=== PATIENT | male | born 1975 | race Two or more races ===

== ENCOUNTER 2017-06-11 22:21 | Emergency (ER) | payer MEDICARE, MEDICAID ==
[~2017-06-11] VITALS: Ht 162.6 cm; Wt 59.0 kg
[2017-06-11] MEDS ORDERED: ATENOLOL25 MG ORAL (22:42)
[2017-06-11] MEDS ORDERED: BISACODYL10 M1 RC (22:42)
[2017-06-11] MEDS ORDERED: BENZTROPINE MESY1 MG PO (22:42)
[2017-06-11] MEDS ORDERED: ASCORBIC ACID500 M4 ORAL (22:42)
[2017-06-11 23:13] VITALS: BP 125/83
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
[2017-07-17] MEDS ORDERED: DOXYCYCLINE HY100 M2 PO (13:02)
== END 2017-06-11 23:43 ==
LOC: EDBD 22:21 → EMR 22:41
DX: D17.1 Benign lipomatous neoplasm of skin and subcutaneous tissue of trunk (principal); I10 Essential (primary) hypertension; J44.9 Chronic obstructive pulmonary disease, unspecified; K21.9 Gastro-esophageal reflux disease without esophagitis; F20.9 Schizophrenia, unspecified; Z88.0 Allergy status to penicillin
CPT/HCPCS: 99283

== ENCOUNTER 2017-07-09 16:26 | Inpatient (IN) | payer MEDICARE, OTHER ==
[~2017-07-09] VITALS: Ht 162.6 cm; Wt 52.2 kg
[~2017-07-09 16:26] MED LIST: ASCORBIC ACID500 M4 ORAL; ATENOLOL25 MG ORAL; BENZTROPINE MESY1 MG PO; BISACODYL10 M1 RC
[2017-07-09 16:30] VITALS: BP 113/68
[2017-07-09] MEDS ORDERED: MULTI VITAMIN1 EACH ORAL (16:39)
[2017-07-09] MEDS ORDERED: DOCUSATE SODIU250 MG ORAL (16:39)
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
[2017-07-09] MEDS ORDERED: Vancomycin 1 GM in NS 275 ML IV ONE (17:15)
[2017-07-09 17:18] LABS: BASOPHILS % (AUTO) 0.8 % (0.0-2.0); EOSINOPHILS % (AUTO) 0.3 % (0.0-3.0); HEMOGLOBIN 13.5 G/DL (14.2-18.0); LYMPHOCYTES % (AUTO) 21.2 % (20.0-45.0); MEAN CORPUSCULAR VOLUME 85 FL (80-99); MONOCYTES % (AUTO) 6.8 % (1.0-10.0); NEUTROPHILS % (AUTO) 70.8 % (45.0-75.0); PLATELET COUNT 375 K/UL (150-450); RED CELL DISTRIBUTION WIDTH 14.1 % (11.6-14.8); WHITE BLOOD COUNT 12.1 K/UL (4.8-10.8)
[2017-07-09] MEDS ORDERED: Vancomycin 1gm inj IVPB ONE (17:30)
[2017-07-09 17:32] LABS: ANION GAP 7 mmol/L (5-15); BLOOD UREA NITROGEN 15 mg/dL (7-18); CALCIUM 9.7 MG/DL (8.5-10.1); CARBON DIOXIDE 27 MMOL/L (21-32); CHLORIDE 102 MMOL/L (98-107); CREATININE 0.6 MG/DL (0.55-1.30); POTASSIUM 3.6 MMOL/L (3.5-5.1); SODIUM 136 MMOL/L (136-145)
[2017-07-09] MEDS ORDERED: NS 275 ML ONE (17:32)
[2017-07-09 17:37] LABS: ALANINE AMINOTRANSFERASE 14 U/L (12-78); ALBUMIN 3.3 G/DL (3.4-5.0); ALBUMIN/GLOBULIN RATIO 0.6 (1.0-2.7); ALKALINE PHOSPHATASE 117 U/L (46-116); ASPARTATE AMINO TRANSFERASE 20 U/L (15-37); BILIRUBIN,TOTAL 0.3 MG/DL (0.2-1.0)
[2017-07-09 18:11] LABS: APPEARANCE,URINE CLEAR; BILIRUBIN, URINE NEGATIVE (NEGATIVE); GLUCOSE, URINE (UA) NEGATIVE (NEGATIVE); KETONES,URINE NEGATIVE (NEGATIVE); LEUKOCYTE ESTERASE ,URINE NEGATIVE (NEGATIVE); NITRITE,URINE NEGATIVE (NEGATIVE); PH,URINE 6 (4.5-8.0); PROTEIN,URINE NEGATIVE (NEGATIVE); UROBILINOGEN,URINE NORMAL MG/DL (0.0-1.0)
[2017-07-09 18:13] LABS: COLOR,URINE YELLOW
[2017-07-09 18:30] VITALS: BP 109/81
[2017-07-09] MEDS ORDERED: Miralax 17gm pkt ORAL PRN (19:00)
[2017-07-09] MEDS ORDERED: FERROUS SULFAT325 MG ORAL (19:00)
[2017-07-09] MEDS ORDERED: COLACE100 MG ORAL (19:04)
[2017-07-09] MEDS ORDERED: CYCLOBENZAPRINE10 MG ORAL (19:04)
[2017-07-09] MEDS ORDERED: IBUPROFEN400 MG ORAL (19:08)
[2017-07-09] MEDS ORDERED: TRAMADOL HCL50 MG ORAL (19:12)
[2017-07-09 20:39] VITALS: BP 111/84
[2017-07-09 21:15] VITALS: BP 101/68
[2017-07-09] MEDS: Morphine Sulfate 4mg/ml Inj IVP PRN (23:25)
[2017-07-10] VITALS: BP 103/78
[2017-07-10] MEDS: Benztropine 1mg tab ORAL SCH ×2 (08:46→17:34)
[2017-07-10] MEDS: Atenolol 25mg tab ORAL SCH (08:46)
[2017-07-10 10:31] LABS: BASOPHILS % (AUTO) 1.3 % (0.0-2.0); EOSINOPHILS % (AUTO) 1.8 % (0.0-3.0); HEMATOCRIT 39.2 % (42.0-52.0); HEMOGLOBIN 12.9 G/DL (14.2-18.0); LYMPHOCYTES % (AUTO) 30.1 % (20.0-45.0); MEAN CORPUSCULAR VOLUME 86 FL (80-99); MONOCYTES % (AUTO) 10.5 % (1.0-10.0); NEUTROPHILS % (AUTO) 56.4 % (45.0-75.0); PLATELET COUNT 374 K/UL (150-450); RED BLOOD COUNT 4.57 M/UL (4.70-6.10)
[2017-07-10 10:57] LABS: ALANINE AMINOTRANSFERASE 17 U/L (12-78); ALBUMIN 2.9 G/DL (3.4-5.0); ALBUMIN/GLOBULIN RATIO 0.5 (1.0-2.7); ALKALINE PHOSPHATASE 108 U/L (46-116); ANION GAP 7 mmol/L (5-15); ASPARTATE AMINO TRANSFERASE 17 U/L (15-37); BILIRUBIN,TOTAL 0.2 MG/DL (0.2-1.0); BLOOD UREA NITROGEN 13 mg/dL (7-18); CALCIUM 9.2 MG/DL (8.5-10.1); CARBON DIOXIDE 25 MMOL/L (21-32); CHLORIDE 103 MMOL/L (98-107); CHOLESTEROL 117 MG/DL (< 200); CREATININE 0.5 MG/DL (0.55-1.30); HDL CHOLESTEROL 41 MG/DL (40-60); SODIUM 135 MMOL/L (136-145); TRIGLYCERIDES 60 MG/DL (30-150)
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
--- NOTE | 2017-07-10 11:23 | Diagnostic Imaging Report ---
Indication: Dyspnea Comparison: None A single view chest radiograph was obtained. Findings: Cardiomediastinal appearance is within normal limits for age. Pulmonary vascularity is appropriate. The diaphragmatic contour is smooth and costophrenic angles are sharp. No pleural effusions are identified. The bones are osteopenic. There are old rib fractures on the right.. Lumbar fixation hardware noted. Impression: No acute findings
[2017-07-10] MEDS: Morphine Sulfate 4mg/ml Inj IVP PRN ×3 (11:56→21:25)
[2017-07-10 12:00] VITALS: BP 126/79
--- NOTE | 2017-07-10 12:48 | Cardiology Report ---
APPROVED REPORT EKG Measurement Heart [id number] Normal sinus rhythm Left axis deviation Abnormal ECG
--- NOTE | 2017-07-10 13:22 | Wound Care Consultation ---
Wound Assessment Wound Assessment #1: Wound Number: 1 Wound Present on Admission: Yes New Wound: No Status Change of Wound: No Wound Location Body Site Modif: right Wound Location Body Site: trochanter Wound Type: scar [place] Test: Does not [place] Wound Thickness: Full Thickness Wound Length: 6.0 Wound Width: 6.0 Percent of Wound [place]/Red: 100 Wound Drainage Amount: None Wound Drainage Odor: None/Absent Tissue Surrounding Wound: Intact Wound General Appearance: Open to air, Clean/Dry Wound Assessment #2: Wound Number: 2 Wound Present on Admission: Yes New Wound: No Status Change of Wound: No Wound Location Body Site Modif: right Wound Location Body Site: other - hip Wound Type: scar [place] Test: Does not [place] Wound Thickness: Full Thickness Wound Length: 2.0 Wound Width: 1.5 Percent of Wound [place]/Red: 100 Wound Drainage Amount: None Wound Drainage Odor: None/Absent Tissue Surrounding Wound: Intact Wound General Appearance: Reddened Wound Assessment #3: Wound Number: 3 Wound Present on Admission: Yes New Wound: No Status Change of Wound: No Wound Location Body Site: other - sacrococcygeal Wound Type: scar [place] Test: Does not [place] Wound Thickness: Full Thickness Wound Length: 6.5 Wound Width: 6.0 Percent of Wound [place]/Red: 100 Wound Drainage Amount: None Wound Drainage Odor: None/Absent Tissue Surrounding Wound: Intact Wound General Appearance: Open to air, Clean/Dry Wound Assessment #4: Wound Number: 4 Wound Present on Admission: Yes New Wound: No Status Change of Wound: No Wound Location Body Site Modif: left Wound Location Body Site: trochanter Wound Type: pressure ulcer [place] Test: Does not [place] Pressure Ulcer Stage: I Wound Length: 2.0 Wound Width: 2.0 Percent of Wound Ona/Red: 100 Wound Drainage Amount: None Wound Drainage Odor: None/Absent Tissue Surrounding Wound: Erythemic Wound General Appearance: Reddened Wound Assessment #5: Wound Number: 5 Wound Present on Admission: Yes New Wound: No Status Change of Wound: No Wound Location Body Site Modif: left, lateral Wound Location Body Site: malleolus/ankle Wound Type: scar - with red pigment [place] Test: Does not [place] Wound Length: 2.0 Wound Width: 1.5 Percent of Wound [place]a/Red: 100 Wound Drainage Amount: None Wound Drainage Odor: None/Absent Tissue Surrounding Wound: Intact Wound General Appearance: Open to air, Clean/Dry Wound Assessment #6: Wound Number: 6 Wound Present on Admission: Yes New Wound: No Status Change of Wound: No Wound Location Body Site Modif: left Wound Location Body Site: ischial tuberosity Wound Type: scar [place] Test: Does not [place] Wound Thickness: Full Thickness Wound Length: 2.0 Wound Width: 2.0 Percent of Wound [place]a/Red: 100 Wound Drainage Amount: None Wound Drainage Odor: None/Absent Tissue Surrounding Wound: Intact Wound General Appearance: Open to air, Clean/Dry Wound Comment #1 Posterior back abscess with open wound bed - follow up with MD for further treatment orders. #2 Right trochanter full thickness scar tissue with red pigment. #3 Right hip scar tissue noted resolving, intact,dry. #4 Sacrococcygeal full thickness scar tissue. #5 Left trochanter stage 1 pressure ulcer. #6 Left lateral malleolus full thickness scar tissue with red pigment. #7 Left ischial tuberosity full thickness scar tissue. Recommendation. - follow MD orders for abscess site. - Local wound care per protocol stage 1 to left trochanter - Assess scar tissue sites notify MD for any change of condition to skin and follow up accordingly - Keep clean and dry. - Optimize nutrition. - Turn and reposition. patient able to self reposition ,encourage and remind the importance of repositioning. - Assess and notify MD for any further change of condition to skin noted. HENRRY CLEMONS Jul 10, 2017 13:22
--- NOTE | 2017-07-10 14:33 | Diagnostic Imaging Report ---
Indication: Abdominal pain Technique: Continuous helical transaxial imaging of the abdomen and pelvis was obtained from the lung bases to the pubic symphysis. No intravenous contrast was administered. Coronal 2-D reformats were also obtained. Automatic Exposure Control was utilized. Total Dose length Product (DLP): 507.[address] Dose Index Volume (CTDIvol): 9.74 mGy Comparison: none Findings: The lung bases are clear. There may be a tiny gallstone present in the neck of the gallbladder. Evaluation of solid organs is limited on this study done without contrast material. There is a moderate degree of fecal retention and impaction of feces in the rectum is noted. The rectum is moderately distended. There is thickening of the urinary bladder wall consistent with cystitis. The appendix is seen and appears normal. No evidence of bowel obstruction, free fluid or free air. There is a isointense rounded mass projecting off the lateral part of the right kidney measuring 1.3 cm, nonspecific in nature. There is decubitus ulceration posterior to the right hip. Correlate clinically. Posterior fusion hardware demonstrated with pedicle screws and fusion rods at T11 and L1. There is a compression fracture of T12. IMPRESSION: Suspected tiny gallstone. No CT evidence of cholecystitis. Please correlate clinically. Moderate retention of fecal material and fecal impaction within the distended rectum. Thickening of the urinary bladder wall consistent with cystitis. Normal appendix 1.3 cm mass versus cyst right kidney. Right decubitus ulceration. Spine surgery as discussed above. The CT scanner at [facility] is accredited by the [employer] and the scans are performed using dose optimization techniques as appropriate to a performed exam including Automatic Exposure control.
--- NOTE | 2017-07-10 14:34 | Consultation ---
History of Present Illness General Date patient seen: Jul 10, 2017 Chief Complaint: Skin Rash/Abscess Reason for Consultation: back wound Present Illness HPI 41M poor historian with multiple medical comorbidities presented with wound on back that is draining. thought to potentially be infected lipoma. surgery called to evaluate. patient states he has had it for a while but not sure how long. has been draining for some time and states he has someone helping care for it but unsure who. no n/v/f/c. pain asking for morphine. Allergies: Coded Allergies: PENICILLINS (Verified Allergy, Unknown, 06/11/17) Medication History Scheduled Ascorbic Acid* (Ascorbic Acid*), 500 MG ORAL DAILY, (Reported) Atenolol* (Tenormin*), 25 MG ORAL DAILY, (Reported) Benztropine Mesylate* (Benztropine Mesylate*), 1 MG PO BID, (Reported) Cyclobenzaprine Hcl* (Flexeril*), 10 MG ORAL THREE TIMES A DAY, (Reported) Docusate Sodium* (Docusate Sodium*), 250 MG ORAL DAILY, (Reported) Ferrous Sulfate* (Ferrous Sulfate*), 325 MG ORAL DAILY, (Reported) Ibuprofen* (Motrin*), 400 MG ORAL Q6H, (Reported) Multivitamin (Multi Vitamin Daily), 1 TAB ORAL DAILY, (Reported) Scheduled PRN Docusate Sodium* (Colace*), 100 MG ORAL BID PRN for cons, (Reported) Tramadol Hcl* (Ultram*), 50 MG ORAL Q12HR PRN for For Pain, (Reported) Discontinued Medications Bisacodyl (Bisacodyl), 10 MG RC DAILY, (Reported) Discontinued Reason: Pt stopped taking med Patient History History Provided By: Patient, Medical Record Healthcare decision maker Resuscitation status No Chest Compressions Advanced Directive on File No Past Medical/Surgical History Past Medical/Surgical History: (1) Abscess Review of Systems All Other Systems: negative except mentioned in HPI Physical Exam General Appearance: no apparent distress Lines, tubes and drains: peripheral HEENT: normocephalic Neck: normal inspection Respiratory/Chest: normal breath sounds, no respiratory distress, no accessory muscle use Cardiovascular/Chest: normal rate Abdomen: normal bowel sounds, non tender, soft, no organomegaly, no mass Extremities: normal inspection Skin Exam: normal pigmentation, warm/dry Neurologic: alert, oriented x 3 Physical Exam Narrative left mid back with raised hard non mobile mass that has area of opening with drainage of serous fluid. no surrounding edema. very hard. patient states it is hardware from prior surgery. prior surgical scar noted. Last 24 Hour Vital Signs Date Time Temp Pulse Resp B/P (MAP) Pulse Ox O2 Delivery O2 Flow Rate FiO2 07/10/17 12:00 97.3 80 20 126/79 97 07/10/17 00:00 97 Room Air 07/10/17 00:00 97.7 107 20 103/78 97 Nasal Cannula 07/09/17 21:39 98.8 82 20 111/84 97 Room Air 07/09/17 21:15 97.9 99 18 101/68 99 Room Air 07/09/17 21:15 99 Room Air 07/09/17 20:39 98.8 82 20 111/84 97 Room Air 98.8 07/09/17 18:30 97.4 60 20 109/81 98 Room Air 97.4 07/09/17 16:30 98.6 101 20 113/68 96 Room Air 98.6 07/09/17 16:20 98.6 99 18 118/79 98 Room Air 98.6 Intake and Output 07/09/17 07/10/17 19:00 07:00 Intake Total 183.3 ml 91.7 ml Output Total 200 ml Balance -16.7 ml 91.7 ml IV Total 183.3 ml 91.7 ml Output Urine Total 200 ml # Voids 1 Laboratory Tests Test 07/09/17 16:45 07/09/17 17:28 07/10/17 10:15 White Blood Count 12.1 K/UL (4.8-10.8) H 7.0 K/UL (4.8-10.8) Red Blood Count 4.80 M/UL (4.70-6.10) 4.57 M/UL (4.70-6.10) L Hemoglobin 13.5 G/DL (14.2-18.0) L 12.9 G/DL (14.2-18.0) L Hematocrit 41.0 % (42.0-52.0) L 39.2 % (42.0-52.0) L Mean Corpuscular Volume 85 FL (80-99) 86 FL (80-99) Mean Corpuscular Hemoglobin 28.1 PG (27.0-31.0) 28.3 PG (27.0-31.0) Mean Corpuscular Hemoglobin Concent 32.9 G/DL (32.0-36.0) 33.0 G/DL (32.0-36.0) Red Cell Distribution Width 14.1 % (11.6-14.8) 14.0 % (11.6-14.8) Platelet Count 375 K/UL (150-450) 374 K/UL (150-450) Mean Platelet Volume 6.0 FL (6.5-10.1) L 6.1 FL (6.5-10.1) L Neutrophils (%) (Auto) 70.8 % (45.0-75.0) 56.4 % (45.0-75.0) Lymphocytes (%) (Auto) 21.2 % (20.0-45.0) 30.1 % (20.0-45.0) Monocytes (%) (Auto) 6.8 % (1.0-10.0) 10.5 % (1.0-10.0) H Eosinophils (%) (Auto) 0.3 % (0.0-3.0) 1.8 % (0.0-3.0) Basophils (%) (Auto) 0.8 % (0.0-2.0) 1.3 % (0.0-2.0) Sodium Level 136 MMOL/L (136-145) 135 MMOL/L (136-145) L Potassium Level 3.6 MMOL/L (3.5-5.1) 4.0 MMOL/L (3.5-5.1) Chloride Level 102 MMOL/L (98-107) 103 MMOL/L (98-107) Carbon Dioxide Level 27 MMOL/L (21-32) 25 MMOL/L (21-32) Anion Gap 7 mmol/L (5-15) 7 mmol/L (5-15) Blood Urea Nitrogen 15 mg/dL (7-18) 13 mg/dL (7-18) Creatinine 0.6 MG/DL (0.55-1.30) 0.5 MG/DL (0.55-1.30) L Estimat Glomerular Filtration Rate > 60 mL/min (>60) > 60 mL/min (>60) Glucose Level 97 MG/DL (74-106) 91 MG/DL (74-106) Lactic Acid Level 1.20 mmol/L (0.66-2.22) Calcium Level 9.7 MG/DL (8.5-10.1) 9.2 MG/DL (8.5-10.1) Total Bilirubin 0.3 MG/DL (0.2-1.0) 0.2 MG/DL (0.2-1.0) Aspartate Amino Transf (AST/SGOT) 20 U/L (15-37) 17 U/L (15-37) Alanine Aminotransferase (ALT/SGPT) 14 U/L (12-78) 17 U/L (12-78) Alkaline Phosphatase 117 U/L (46-116) H 108 U/L (46-116) Total Protein 8.8 G/DL (6.4-8.2) H 8.4 G/DL (6.4-8.2) H Albumin 3.3 G/DL (3.4-5.0) L 2.9 G/DL (3.4-5.0) L Globulin 5.5 g/dL 5.5 g/dL Albumin/Globulin Ratio 0.6 (1.0-2.7) L 0.5 (1.0-2.7) L Urine Color Yellow Urine Appearance Clear Urine pH 6 (4.5-8.0) Urine Specific [place] 1.010 (1.005-1.035) Urine Protein Negative (NEGATIVE) Urine Glucose (UA) Negative (NEGATIVE) Urine Ketones Negative (NEGATIVE) Urine Occult Blood Negative (NEGATIVE) Urine Nitrite Negative (NEGATIVE) Urine Bilirubin Negative (NEGATIVE) Urine Urobilinogen Normal MG/DL (0.0-1.0) Urine Leukocyte Esterase Negative (NEGATIVE) Triglycerides Level 60 MG/DL (30-150) Cholesterol Level 117 MG/DL (< 200) LDL Cholesterol 69 mg/dL (<100) HDL Cholesterol 41 MG/DL (40-60) Cholesterol/HDL Ratio 2.9 (3.3-4.4) L Thyroid Stimulating Hormone (TSH) 2.354 uiU/mL (0.358-3.740) Height (Feet): 5 Height (Inches): 4.00 Weight (Pounds): 115 Medications Current Medications Medications (Trade) Dose Ordered Sig/Jo Route PRN Reason Start Time Stop Time Status Last Admin Dose Admin Acetaminophen (Tylenol) 650 mg Q4H PRN ORAL fever 07/09/17 19:00 08/08/17 18:59 Al Hydroxide/Mg Hydroxide (Mylanta II) 30 ml Q6H PRN ORAL dyspepsia 07/09/17 19:00 08/08/17 18:59 Atenolol (Tenormin) 25 mg DAILY ORAL 07/10/17 09:00 08/09/17 08:59 Benztropine Mesylate (Cogentin) 1 mg BID ORAL 07/10/17 09:00 08/09/17 08:59 Dextrose (Dextrose 50%) STAT PRN IV Hypoglycemia 07/09/17 19:00 08/08/17 18:59 Lorazepam (Ativan 2mg/ml 1ml) 0.5 mg Q4H PRN IV For Anxiety 07/09/17 19:00 07/16/17 18:59 Morphine Sulfate (Morphine Sulfate) 1 mg EVERY 4 HOURS PRN IVP For Pain 07/09/17 19:00 07/16/17 18:59 07/10/17 11:56 Ondansetron HCl (Zofran) 4 mg Q6H PRN IVP Nausea & Vomiting 07/09/17 19:00 08/08/17 18:59 Polyethylene Glycol (Miralax) 17 gm HSPRN PRN ORAL Constipation 07/09/17 19:00 08/08/17 18:59 Vancomycin HCl (Vanco rx to dose) 1 ea DAILY PRN MISC Per rx protocol 07/10/17 13:15 08/09/17 13:14 Vancomycin/Sodium Chloride 250 ml @ 166.667 mls/hr Q8HR IVPB 07/10/17 14:30 07/15/17 14:29 Zolpidem Tartrate (Ambien) 5 mg HSPRN PRN ORAL Insomnia 07/09/17 19:00 07/16/17 18:59 Assessment/Plan Problem List: (1) Abscess Assessment & Plan: abscess on back that is spontaneously draining. seems chronic and likely related to hard non mobile mass just adjacent to it. very concerning given etiology unknown of this hard non mobile mass. unlikely to be lipoma. needs further work up. CT scan ordered to evaluate mass. may need ultrasound okay for packing and dressings for now. patient stable, afebrile, labs okay. no acute active process noted but concerning wound. will follow with recs as studies available. ICD Codes: L02.91 - Cutaneous abscess, unspecified SNOMED: 336472465 Status: stable Raoul Ball Jul 10, 2017 14:34
[2017-07-10 16:00] VITALS: BP 113/64
[2017-07-10] MEDS: Vancomycin 750mg/NS 250ml IVPB SCH ×2 (16:01→21:25)
--- NOTE | 2017-07-10 20:46 | History and Physical Report ---
DATE OF ADMISSION: 07/09/2017 APPROXIMATE TIME: 1 p.m. CONSULTANTS: 1. Uriel Paulino M.D. 2. Amina Lennon M.D. 3. Raoul Ball M.D. 4. Dr. Delgado. 5. Hai Reich M.D. CHIEF COMPLAINT: Infected lipoma on the back. BRIEF HISTORY: The patient is a 41-year-old male from [facility] presents with lipoma in the back, becoming infected and red. The patient has lipoma for about three months now and occasionally gets infected. The patient's lipoma became red and was sent to [place] for further treatment. Currently, actually slightly anxious in bed, oriented x2, in no acute distress. PAST MEDICAL HISTORY: Paraplegia, tremor, and encephalopathy. PAST SURGICAL HISTORY: Back surgery. MEDICATIONS: Vancomycin, atenolol, Cogentin, morphine, MiraLAX, Zofran, Ambien, Ativan, and Mylanta. ALLERGIES: Penicillin. SOCIAL HISTORY: Positive smoke. Positive alcohol. No intravenous drug abuse. FAMILY HISTORY: Noncontributory. REVIEW OF SYSTEMS: No chest pain. No shortness of breath. No nausea, vomiting, or diarrhea. PHYSICAL EXAMINATION: GENERAL: Slightly anxious in bed, oriented x2, in no acute distress. VITAL SIGNS: Temperature 97 degrees, pulse 107, respirations 20, blood pressure 130/78. CARDIOVASCULAR: No murmur. LUNGS: Distant and clear. ABDOMEN: Bowel sound positive. Nontender. Nondistended. EXTREMITIES: No cyanosis or clubbing. Lower extremity paralysis noted. BACK: About a 4 inch x 4 inch swollen area, slightly red, slightly soft mass noted with slight erythema. LABORATORY AND DIAGNOSTIC DATA: CBC, initially white count 12 and now 7, hemoglobin and hematocrit 12/39, otherwise CBC is normal. BMP shows sodium 135, creatinine 0.5, albumin 2.9 otherwise, normal. Urinalysis is negative. ASSESSMENT: 1. Infected lipoma on the back. 2. Paraplegia. 3. Tremor. 4. Encephalopathy. 5. Anemia. 6. Hypoalbuminemia. PLAN: 1. Continue premedications. 2. Wound care. 3. Antibiotics per Infectious Disease. 4. OT/PT. 5. Dietary follow up. 6. Pain control. 7. Resume home medications. 8. Dr. Paulino, Dr. Jaramillo, Dr. Ball, Dr. Delgado and Dr. Reich to consult. We will continue to follow this patient. Isaiah Her D.O. DR: NADYA JOB#: [id number] CC:
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
[2017-07-11] VITALS: BP 124/83
[2017-07-11] MEDS: Zolpidem 5mg tab ORAL PRN ×2 (01:49→22:02)
[2017-07-11 04:00] VITALS: BP 130/69
[2017-07-11] MEDS: Vancomycin 750mg/NS 250ml IVPB SCH ×3 (05:15→22:02)
[2017-07-11] MEDS: Morphine Sulfate 4mg/ml Inj IVP PRN ×3 (05:26→19:58)
[2017-07-11 07:12] LABS: BASOPHILS % (AUTO) 0.7 % (0.0-2.0); HEMATOCRIT 39.6 % (42.0-52.0); HEMOGLOBIN 13.1 G/DL (14.2-18.0); LYMPHOCYTES % (AUTO) 28.8 % (20.0-45.0); MEAN CORPUSCULAR VOLUME 86 FL (80-99); MONOCYTES % (AUTO) 9.5 % (1.0-10.0); NEUTROPHILS % (AUTO) 59.9 % (45.0-75.0); PLATELET COUNT 401 K/UL (150-450); RED BLOOD COUNT 4.61 M/UL (4.70-6.10); WHITE BLOOD COUNT 11.1 K/UL (4.8-10.8)
[2017-07-11 07:29] LABS: ANION GAP 8 mmol/L (5-15); BLOOD UREA NITROGEN 12 mg/dL (7-18); CALCIUM 9.1 MG/DL (8.5-10.1); CARBON DIOXIDE 27 MMOL/L (21-32); CHLORIDE 103 MMOL/L (98-107); CREATININE 0.6 MG/DL (0.55-1.30); POTASSIUM 4.3 MMOL/L (3.5-5.1); SODIUM 138 MMOL/L (136-145)
[2017-07-11 08:00] VITALS: BP 137/77
--- NOTE | 2017-07-11 08:37 | General Progress Note ---
Assessment/Plan Problem List: (1) Paraplegia ICD Codes: G82.20 - Paraplegia, unspecified SNOMED: 98263595 (2) Tremor ICD Codes: R25.1 - Tremor, unspecified SNOMED: 78413436 (3) Encephalopathy ICD Codes: G93.40 - Encephalopathy, unspecified SNOMED: 23941479 (4) Lipoma of back ICD Codes: D17.1 - Benign lipomatous neoplasm of skin and subcutaneous tissue of trunk SNOMED: 161152035 (5) Abscess ICD Codes: L02.91 - Cutaneous abscess, unspecified SNOMED: 576517944 Status: unchanged Assessment/Plan ot pt diet abx per id wound care i&d prn per sx dc plan Subjective Constitutional: Reports: weakness Allergies: Coded Allergies: PENICILLINS (Verified Allergy, Unknown, 06/11/17) All Systems: reviewed and negative except above Subjective sleepy calm in bed Objective Last 24 Hour Vital Signs Date Time Temp Pulse Resp B/P (MAP) Pulse Ox O2 Delivery O2 Flow Rate FiO2 07/11/17 04:00 98.3 73 18 130/69 100 Room Air 07/11/17 00:00 98.2 72 19 124/83 100 Room Air 07/10/17 20:00 99.1 82 19 97 Room Air 07/10/17 16:00 Room Air 07/10/17 16:00 98.4 82 20 113/64 20 07/10/17 12:00 Room Air 07/10/17 12:00 97.3 80 20 126/79 97 Intake and Output 07/10/17 07/11/17 19:00 07:00 Intake Total 440 ml 360 ml Balance 440 ml 360 ml Intake Oral 440 ml 360 ml # Voids 4 2 Laboratory Tests 07/10/17 10:15: White Blood Count 7.0, Red Blood Count 4.57L, Hemoglobin 12.9L, Hematocrit 39.2L , Mean Corpuscular Volume 86, Mean Corpuscular Hemoglobin 28.3, Mean Corpuscular Hemoglobin Concent 33.0, Red Cell Distribution Width 14.0, Platelet Count 374, Mean Platelet Volume 6.1L, Neutrophils (%) (Auto) 56.4, Lymphocytes ( %) (Auto) 30.1, Monocytes (%) (Auto) 10.5H, Eosinophils (%) (Auto) 1.8, Basophils (%) (Auto) 1.3, Sodium Level 135L, Potassium Level 4.0, Chloride Level 103, Carbon Dioxide Level 25, Anion Gap 7, Blood Urea Nitrogen 13, Creatinine 0.5L, Estimat Glomerular Filtration Rate > 60, Glucose Level 91, Calcium Level 9.2, Total Bilirubin 0.2, Aspartate Amino Transf (AST/SGOT) 17, Alanine Aminotransferase (ALT/SGPT) 17, Alkaline Phosphatase 108, Total Protein 8.4H, Albumin 2.9L, Globulin 5.5, Albumin/Globulin Ratio 0.5L, Triglycerides Level 60, Cholesterol Level 117, LDL Cholesterol 69, HDL Cholesterol 41, Cholesterol/HDL Ratio 2.9L, Thyroid Stimulating Hormone (TSH) 2.354 07/11/17 04:50: White Blood Count 11.1#H, Red Blood Count 4.61L, Hemoglobin 13.1L, Hematocrit 39.6L, Mean Corpuscular Volume 86, Mean Corpuscular Hemoglobin 28.4, Mean Corpuscular Hemoglobin Concent 33.1, Red Cell Distribution Width 14.0, Platelet Count 401, Mean Platelet Volume 6.0L, Neutrophils (%) (Auto) 59.9, Lymphocytes ( %) (Auto) 28.8, Monocytes (%) (Auto) 9.5, Eosinophils (%) (Auto) 1.0, Basophils (%) (Auto) 0.7, Sodium Level 138, Potassium Level 4.3, Chloride Level 103, Carbon Dioxide Level 27, Anion Gap 8, Blood Urea Nitrogen 12, Creatinine 0.6, Estimat Glomerular Filtration Rate > 60, Glucose Level 81, Calcium Level 9.1 Height (Feet): 5 Height (Inches): 4.00 Weight (Pounds): 115 General Appearance: lethargic, confused EENT: normal ENT inspection Neck: normal alignment Cardiovascular: normal peripheral pulses, normal rate, regular rhythm Respiratory/Chest: chest wall non-tender, lungs clear, normal breath sounds Abdomen: normal bowel sounds, non tender, soft Extremities: normal inspection Edema: no edema noted Arm (L), no edema noted Arm (R), no edema noted Leg (L), no edema noted Leg (R), no edema noted Pedal (L), no edema noted Pedal (R), no edema noted Generalized Neurologic: responsive, motor weakness Skin: normal pigmentation, warm/dry Objective 3" x 3" red swollen mass mid lower back ALICIA CHAVEZ Jul 11, 2017 08:37
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
[2017-07-11] MEDS: Benztropine 1mg tab ORAL SCH ×2 (08:42→17:17)
[2017-07-11] MEDS: Atenolol 25mg tab ORAL SCH (08:42)
[2017-07-11 12:00] VITALS: BP 118/72
--- NOTE | 2017-07-11 12:40 | Infectious Diseases Prog Note ---
Assessment/Plan Assessment/Plan A Back cellulitis, abscess mass in back Paraplegia Fecal impaction T12 compression Urinary incontinence P; Continue IV Vancomycin will f/u cultures Subjective ROS Limited/Unobtainable: No Constitutional: Reports: no symptoms Respiratory: Reports: no symptoms Cardiovascular: Reports: no symptoms Gastrointestinal/Abdominal: Reports: no symptoms Musculoskeletal: Reports: pain, other - lower back pain Allergies: Coded Allergies: PENICILLINS (Verified Allergy, Unknown, 06/11/17) Objective Vital Signs Last 24 Hour Vital Signs Date Time Temp Pulse Resp B/P (MAP) Pulse Ox O2 Delivery O2 Flow Rate FiO2 07/11/17 08:42 83 137/77 07/11/17 08:00 98.5 83 18 137/77 100 Room Air 07/11/17 04:00 98.3 73 18 130/69 100 Room Air 07/11/17 00:00 98.2 72 19 124/83 100 Room Air 07/10/17 20:00 99.1 82 19 97 Room Air 07/10/17 16:00 Room Air 07/10/17 16:00 98.4 82 20 113/64 20 Height (Feet): 5 Height (Inches): 4.00 Weight (Pounds): 115 General Appearance: no acute distress HEENT: mucous membranes moist Respiratory/Chest: lungs clear Cardiovascular: normal rate Abdomen: soft, non tender Extremities: other - ulcerated mass in back Neurologic/Psychiatric: alert, oriented x 3, responsive, sensory deficit, other - paraplegia Microbiology Date/Time Source Procedure Growth Status 07/09/17 17:09 Blood Blood Culture - Preliminary NO GROWTH AFTER 24 HOURS Resulted 07/09/17 16:45 Blood Blood Culture - Preliminary NO GROWTH AFTER 24 HOURS Resulted 07/10/17 17:00 Back Gram Stain Pending Resulted 07/10/17 17:00 Back Wound Culture - Preliminary NO GROWTH Resulted Laboratory Tests Test 07/11/17 04:50 White Blood Count 11.1 K/UL (4.8-10.8) #H Red Blood Count 4.61 M/UL (4.70-6.10) L Hemoglobin 13.1 G/DL (14.2-18.0) L Hematocrit 39.6 % (42.0-52.0) L Mean Corpuscular Volume 86 FL (80-99) Mean Corpuscular Hemoglobin 28.4 PG (27.0-31.0) Mean Corpuscular Hemoglobin Concent 33.1 G/DL (32.0-36.0) Red Cell Distribution Width 14.0 % (11.6-14.8) Platelet Count 401 K/UL (150-450) Mean Platelet Volume 6.0 FL (6.5-10.1) L Neutrophils (%) (Auto) 59.9 % (45.0-75.0) Lymphocytes (%) (Auto) 28.8 % (20.0-45.0) Monocytes (%) (Auto) 9.5 % (1.0-10.0) Eosinophils (%) (Auto) 1.0 % (0.0-3.0) Basophils (%) (Auto) 0.7 % (0.0-2.0) Sodium Level 138 MMOL/L (136-145) Potassium Level 4.3 MMOL/L (3.5-5.1) Chloride Level 103 MMOL/L (98-107) Carbon Dioxide Level 27 MMOL/L (21-32) Anion Gap 8 mmol/L (5-15) Blood Urea Nitrogen 12 mg/dL (7-18) Creatinine 0.6 MG/DL (0.55-1.30) Estimat Glomerular Filtration Rate > 60 mL/min (>60) Glucose Level 81 MG/DL (74-106) Calcium Level 9.1 MG/DL (8.5-10.1) Current Medications Medications (Trade) Dose Ordered Sig/Jo Route PRN Reason Start Time Stop Time Status Last Admin Dose Admin Acetaminophen (Tylenol) 650 mg Q4H PRN ORAL fever 07/09/17 19:00 08/08/17 18:59 Al Hydroxide/Mg Hydroxide (Mylanta II) 30 ml Q6H PRN ORAL dyspepsia 07/09/17 19:00 08/08/17 18:59 Atenolol (Tenormin) 25 mg DAILY ORAL 07/10/17 09:00 08/09/17 08:59 07/11/17 08:42 Benztropine Mesylate (Cogentin) 1 mg BID ORAL 07/10/17 09:00 18 08:59 07/11/17 08:42 Dextrose (Dextrose 50%) STAT PRN IV Hypoglycemia 07/09/17 19:00 08/08/17 18:59 Lorazepam (Ativan 2mg/ml 1ml) 0.5 mg Q4H PRN IV For Anxiety 07/09/17 19:00 07/16/17 18:59 Morphine Sulfate (Morphine Sulfate) 1 mg EVERY 4 HOURS PRN IVP For Pain 07/09/17 19:00 07/16/17 18:59 07/11/17 05:26 Ondansetron HCl (Zofran) 4 mg Q6H PRN IVP Nausea & Vomiting 07/09/17 19:00 08/08/17 18:59 Polyethylene Glycol (Miralax) 17 gm HSPRN PRN ORAL Constipation 07/09/17 19:00 08/08/17 18:59 Vancomycin HCl (Vanco rx to dose) 1 ea DAILY PRN MISC Per rx protocol 07/10/17 13:15 08/09/17 13:14 Vancomycin/Sodium Chloride 250 ml @ 166.667 mls/hr Q8HR IVPB 07/10/17 14:30 07/15/17 14:29 07/11/17 05:15 Zolpidem Tartrate (Ambien) 5 mg HSPRN PRN ORAL Insomnia 07/09/17 19:00 07/16/17 18:59 07/11/17 01:49 OMAR RIVERA Jul 11, 2017 12:40
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
[2017-07-11] MEDS: LORazepam Inj 2mg/ml 1ml IV PRN (14:52)
[2017-07-11 16:00] VITALS: BP 152/86
[2017-07-11] MEDS: Mylanta II UD 30ml ORAL PRN ×2 (17:35→23:41)
--- NOTE | 2017-07-11 19:31 | General Surgery Progress Note ---
General Surgery-Progress Note Subjective Additional Comments states he feels better. no complaints. Objective Last 24 Hour Vital Signs Date Time Temp Pulse Resp B/P (MAP) Pulse Ox O2 Delivery O2 Flow Rate FiO2 07/11/17 16:00 97.0 73 20 152/86 Room Air 07/11/17 13:32 97.2 07/11/17 13:02 97.2 07/11/17 12:00 97.2 74 20 118/72 97 Room Air 07/11/17 08:42 83 137/77 07/11/17 08:00 98.5 83 18 137/77 100 Room Air 07/11/17 04:00 98.3 73 18 130/69 100 Room Air 07/11/17 00:00 98.2 72 19 124/83 100 Room Air 07/10/17 20:00 99.1 82 19 97 Room Air I&O Intake and Output 07/10/17 07/11/17 19:00 07:00 Intake Total 440 ml 360 ml Balance 440 ml 360 ml Intake Oral 440 ml 360 ml # Voids 4 2 Dressing: saturated Wound: other - serous drainage with somewhat purulent drainage as well. Cardiovascular: RSR Respiratory: clear Abdomen: soft, flat, non-tender, present bowel sounds Extremities: no edema, no tenderness Laboratory Tests Test 07/11/17 04:50 07/11/17 13:45 White Blood Count 11.1 K/UL (4.8-10.8) #H Red Blood Count 4.61 M/UL (4.70-6.10) L Hemoglobin 13.1 G/DL (14.2-18.0) L Hematocrit 39.6 % (42.0-52.0) L Mean Corpuscular Volume 86 FL (80-99) Mean Corpuscular Hemoglobin 28.4 PG (27.0-31.0) Mean Corpuscular Hemoglobin Concent 33.1 G/DL (32.0-36.0) Red Cell Distribution Width 14.0 % (11.6-14.8) Platelet Count 401 K/UL (150-450) Mean Platelet Volume 6.0 FL (6.5-10.1) L Neutrophils (%) (Auto) 59.9 % (45.0-75.0) Lymphocytes (%) (Auto) 28.8 % (20.0-45.0) Monocytes (%) (Auto) 9.5 % (1.0-10.0) Eosinophils (%) (Auto) 1.0 % (0.0-3.0) Basophils (%) (Auto) 0.7 % (0.0-2.0) Sodium Level 138 MMOL/L (136-145) Potassium Level 4.3 MMOL/L (3.5-5.1) Chloride Level 103 MMOL/L (98-107) Carbon Dioxide Level 27 MMOL/L (21-32) Anion Gap 8 mmol/L (5-15) Blood Urea Nitrogen 12 mg/dL (7-18) Creatinine 0.6 MG/DL (0.55-1.30) Estimat Glomerular Filtration Rate > 60 mL/min (>60) Glucose Level 81 MG/DL (74-106) Calcium Level 9.1 MG/DL (8.5-10.1) Erythrocyte Sedimentation Rate 47 MM/HR (0-15) H Hemoglobin A1c 5.6 % (4.3-6.0) Vitamin B12 Level 926 PG/ML (193-986) Vitamin D 25-Hydroxy Pending 25-Hydroxy Vitamin D2 Pending 25-Hydroxy Vitamin D3 Pending Folate 19.7 NG/ML (8.6-58.9) Vancomycin Level Trough 11.9 ug/mL (5.0-12.0) Rapid Plasma Reagin Pending Additional Comments mid back open area 1cm with drainage. wound cleaned and palpated. can identify hardware from prior spine surgery exposed and palpable with fibrinous surrounding tissue. mild cellulitis. Plan Problems: (1) Abscess Assessment & Plan: abscess on back that is spontaneously draining. seems chronic and likely related to hard non mobile mass just adjacent to it. very concerning given etiology unknown of this hard non mobile mass. unlikely to be lipoma. needs further work up. CT scan reviewed. no infected lipoma or mass. lots of protruding hardware noted which was correlated on exam today. likely hardware infected or non healing given open wound. Needs to be evaluated by spine surgeon as concerns for hardware infection. continue packing and dressings for now. patient stable, afebrile, labs okay. no acute active process noted but concerning wound. will follow with recs as studies available. Raoul Ball Jul 11, 2017 19:31
[2017-07-11 20:00] VITALS: BP 135/82
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
--- NOTE | 2017-07-11 21:45 | Consultation ---
DATE OF CONSULTATION: 07/10/2017 PSYCHOTHERAPY CONSULTATION PROGRESS NOTE CONSULTING PHYSICIAN: Elle Calixto M.D. TREATING ATTENDING PHYSICIAN: Isaiah Her D.O. HISTORY OF PRESENT ILLNESS: The patient is a 41-year-old male patient from [facility]. The patient was admitted to the hospital with lipoma in the back became infected and red. The patient has been anxious, irritable, and has a history of schizophrenia, and for these reasons, the patient was referred for psychotherapeutic services. This clinician assessed this patient. . The patient states that he does not have any depression at this time. He denies suicidal or homicidal thoughts of ideation. He denies any auditory or visual hallucinations at this time, although he states that he has had auditory hallucinations earlier in the morning. The patient is anxious. PAST MEDICAL HISTORY: History of paraplegia, tremor, and encephalopathy. ALLERGIES: The patient is allergic to penicillin. SUBSTANCE ABUSE HISTORY: The patient has a history of smoking cigarettes. The patient has history of prior drinking alcohol, however, denies illicit substance abuse. PAST PSYCHIATRIC HISTORY: The patient has a history of schizophrenia and has been treated with psychotropic medications in the past and has been hospitalized in psychiatric hospitals. SOCIAL HISTORY: The patient is a single 41-year-old male patient from [facility]. Financially sustained through [employer]. MENTAL STATUS EXAMINATION: Alert and oriented to person, place and time. His mood is anxious. Affect congruent. Thought process is disorganized. The patient has fair attention and concentration. Poor insight, judgment, and impulse control. DIAGNOSIS: Schizophrenia, paranoid type. PLAN: This clinician assessed this patient, assessed the patient's mental status. Encouraging the patient to participate in treatment milieu, working with the patient on increasing compliance with treatment milieu, addressing the patient's anxiety and poor coping skills. Continue behavioral management. This clinician has reviewed the patient's chart and discussed the treatment with treatment team. Elle Calixto PsyD. DR: ELVIS JOB#: [id number] CC:
[2017-07-12] MEDS: Morphine Sulfate 4mg/ml Inj IVP PRN ×3 (01:59→09:43)
[2017-07-12] MEDS: LORazepam Inj 2mg/ml 1ml IV PRN (02:33)
[2017-07-12 04:00] VITALS: BP 133/90
[2017-07-12] MEDS: Vancomycin 750mg/NS 250ml IVPB SCH ×3 (05:50→21:09)
[2017-07-12 07:34] LABS: BASOPHILS % (AUTO) 0.8 % (0.0-2.0); EOSINOPHILS % (AUTO) 0.2 % (0.0-3.0); HEMATOCRIT 38.5 % (42.0-52.0); HEMOGLOBIN 12.8 G/DL (14.2-18.0); LYMPHOCYTES % (AUTO) 22.5 % (20.0-45.0); MEAN CORPUSCULAR VOLUME 84 FL (80-99); MONOCYTES % (AUTO) 9.3 % (1.0-10.0); NEUTROPHILS % (AUTO) 67.3 % (45.0-75.0); PLATELET COUNT 423 K/UL (150-450); RED BLOOD COUNT 4.56 M/UL (4.70-6.10); RED CELL DISTRIBUTION WIDTH 13.7 % (11.6-14.8)
[2017-07-12 07:46] LABS: ANION GAP 7 mmol/L (5-15); BLOOD UREA NITROGEN 6 mg/dL (7-18); CARBON DIOXIDE 30 MMOL/L (21-32); CHLORIDE 99 MMOL/L (98-107); CREATININE 0.7 MG/DL (0.55-1.30); POTASSIUM 3.2 MMOL/L (3.5-5.1); SODIUM 136 MMOL/L (136-145)
[2017-07-12 08:15] VITALS: BP 114/71
[2017-07-12] MEDS: Benztropine 1mg tab ORAL SCH ×2 (09:42→17:42)
[2017-07-12] MEDS: Atenolol 25mg tab ORAL SCH (09:42)
--- NOTE | 2017-07-12 10:22 | General Surgery Progress Note ---
General Surgery-Progress Note Subjective Additional Comments doing okay. no complaints. wants pain meds. wound still with drainage Objective Last 24 Hour Vital Signs Date Time Temp Pulse Resp B/P (MAP) Pulse Ox O2 Delivery O2 Flow Rate FiO2 07/12/17 09:43 98.9 07/12/17 09:42 76 114/71 07/12/17 08:15 98.9 76 20 114/71 98 Room Air 07/12/17 04:00 98.3 72 20 133/90 98 Room Air 07/11/17 20:00 98.7 72 18 135/82 96 Room Air 07/11/17 16:00 97.0 73 20 152/86 Room Air 07/11/17 13:32 97.2 07/11/17 13:02 97.2 07/11/17 12:00 97.2 74 20 118/72 97 Room Air I&O Intake and Output 07/11/17 07/12/17 19:00 07:00 Intake Total 1400 ml 1166.667 ml Balance 1400 ml 1166.667 ml Intake Oral 1400 ml 750 ml IV Total 416.667 ml # Voids 7 4 # Bowel Movements 1 Dressing: saturated Wound: other - with seropurulent drainage Cardiovascular: RSR Respiratory: clear Abdomen: soft, flat, non-tender, present bowel sounds Extremities: no edema, no tenderness Laboratory Tests Test 07/11/17 13:45 07/12/17 05:30 Erythrocyte Sedimentation Rate 47 MM/HR (0-15) H Hemoglobin A1c 5.6 % (4.3-6.0) Vitamin B12 Level 926 PG/ML (193-986) Vitamin D 25-Hydroxy Pending 25-Hydroxy Vitamin D2 Pending 25-Hydroxy Vitamin D3 Pending Folate 19.7 NG/ML (8.6-58.9) Vancomycin Level Trough 11.9 ug/mL (5.0-12.0) Rapid Plasma Reagin Pending White Blood Count 12.0 K/UL (4.8-10.8) H Red Blood Count 4.56 M/UL (4.70-6.10) L Hemoglobin 12.8 G/DL (14.2-18.0) L Hematocrit 38.5 % (42.0-52.0) L Mean Corpuscular Volume 84 FL (80-99) Mean Corpuscular Hemoglobin 28.1 PG (27.0-31.0) Mean Corpuscular Hemoglobin Concent 33.3 G/DL (32.0-36.0) Red Cell Distribution Width 13.7 % (11.6-14.8) Platelet Count 423 K/UL (150-450) Mean Platelet Volume 6.2 FL (6.5-10.1) L Neutrophils (%) (Auto) 67.3 % (45.0-75.0) Lymphocytes (%) (Auto) 22.5 % (20.0-45.0) Monocytes (%) (Auto) 9.3 % (1.0-10.0) Eosinophils (%) (Auto) 0.2 % (0.0-3.0) Basophils (%) (Auto) 0.8 % (0.0-2.0) Sodium Level 136 MMOL/L (136-145) Potassium Level 3.2 MMOL/L (3.5-5.1) L Chloride Level 99 MMOL/L (98-107) Carbon Dioxide Level 30 MMOL/L (21-32) Anion Gap 7 mmol/L (5-15) Blood Urea Nitrogen 6 mg/dL (7-18) L Creatinine 0.7 MG/DL (0.55-1.30) Estimat Glomerular Filtration Rate > 60 mL/min (>60) Glucose Level 119 MG/DL (74-106) H Calcium Level 9.0 MG/DL (8.5-10.1) Plan Problems: (1) Abscess Assessment & Plan: abscess on back that is spontaneously draining. seems chronic and likely related to hard non mobile mass just adjacent to it. very concerning given etiology unknown of this hard non mobile mass. unlikely to be lipoma. needs further work up. CT scan reviewed. no infected lipoma or mass. lots of protruding hardware noted which was correlated on exam today. likely hardware infected or non healing given open wound. Needs to be evaluated by spine surgeon as concerns for hardware infection. continue packing and dressings for now. patient stable, afebrile, labs okay. no acute active process noted but concerning wound. will follow with recs as studies available. Raoul Ball Jul 12, 2017 10:22
--- NOTE | 2017-07-12 11:03 | Infectious Diseases Prog Note ---
"Assessment/Plan Assessment/Plan antibiotics : vancomycin iv A 1. back cellulitis | abscess 2. paraplegia 3. T 12 compression fracture 4. right kidney mass P 1. continue iv vancomycin 2. will follow up cultures Subjective Constitutional: Denies: fever, chills Respiratory: Denies: shortness of breath, dry cough Gastrointestinal/Abdominal: Denies: nausea, vomiting, diarrhea Musculoskeletal: Denies: pain Allergies: Coded Allergies: PENICILLINS (Verified Allergy, Unknown, 06/11/17) Objective Vital Signs Last 24 Hour Vital Signs Date Time Temp Pulse Resp B/P (MAP) Pulse Ox O2 Delivery O2 Flow Rate FiO2 07/12/17 10:13 98.9 07/12/17 09:43 98.9 07/12/17 09:42 76 114/71 07/12/17 08:15 98.9 76 20 114/71 98 Room Air 07/12/17 04:00 98.3 72 20 133/90 98 Room Air 07/11/17 20:00 98.7 72 18 135/82 96 Room Air 07/11/17 16:00 97.0 73 20 152/86 Room Air 07/11/17 13:02 97.2 07/11/17 12:00 97.2 74 20 118/72 97 Room Air Height (Feet): 5 Height (Inches): 4.00 Weight (Pounds): 115 Respiratory/Chest: lungs clear Cardiovascular: normal rate, regular rhythm, no gallop/murmur Abdomen: soft, non tender Extremities: no edema Microbiology Date/Time Source Procedure Growth Status 07/09/17 17:09 Blood Blood Culture - Preliminary NO GROWTH AFTER 24 HOURS Resulted 07/09/17 16:45 Blood Blood Culture - Preliminary NO GROWTH AFTER 24 HOURS Resulted 07/09/17 17:20 Nasal Nares MRSA Culture - Final NO METHICILLIN RESISTANT STAPH AUREUS... Complete 07/10/17 17:00 Back Gram Stain Pending Resulted 07/10/17 17:00 Back Wound Culture - Preliminary NO GROWTH AFTER 48 HOURS Resulted 07/09/17 17:20 Rectum VRE Culture - Final NO VANCOMYCIN RESISTANT ENTEROCOCCUS ... Complete Laboratory Tests Test 07/11/17 13:45 07/12/17 05:30 Erythrocyte Sedimentation Rate 47 MM/HR (0-15) H Hemoglobin A1c 5.6 % (4.3-6.0) Vitamin B12 Level 926 PG/ML (193-986) Vitamin D 25-Hydroxy Pending 25-Hydroxy Vitamin D2 Pending 25-Hydroxy Vitamin D3 Pending Folate 19.7 NG/ML (8.6-58.9) Vancomycin Level Trough 11.9 ug/mL (5.0-12.0) Rapid Plasma Reagin Pending White Blood Count 12.0 K/UL (4.8-10.8) H Red Blood Count 4.56 M/UL (4.70-6.10) L Hemoglobin 12.8 G/DL (14.2-18.0) L Hematocrit 38.5 % (42.0-52.0) L Mean Corpuscular Volume 84 FL (80-99) Mean Corpuscular Hemoglobin 28.1 PG (27.0-31.0) Mean Corpuscular Hemoglobin Concent 33.3 G/DL (32.0-36.0) Red Cell Distribution Width 13.7 % (11.6-14.8) Platelet Count 423 K/UL (150-450) Mean Platelet Volume 6.2 FL (6.5-10.1) L Neutrophils (%) (Auto) 67.3 % (45.0-75.0) Lymphocytes (%) (Auto) 22.5 % (20.0-45.0) Monocytes (%) (Auto) 9.3 % (1.0-10.0) Eosinophils (%) (Auto) 0.2 % (0.0-3.0) Basophils (%) (Auto) 0.8 % (0.0-2.0) Sodium Level 136 MMOL/L (136-145) Potassium Level 3.2 MMOL/L (3.5-5.1) L Chloride Level 99 MMOL/L (98-107) Carbon Dioxide Level 30 MMOL/L (21-32) Anion Gap 7 mmol/L (5-15) Blood Urea Nitrogen 6 mg/dL (7-18) L Creatinine 0.7 MG/DL (0.55-1.30) Estimat Glomerular Filtration Rate > 60 mL/min (>60) Glucose Level 119 MG/DL (74-106) H Calcium Level 9.0 MG/DL (8.5-10.1) HALEY KELLOGG Jul 12, 2017 11:03"
[2017-07-12 11:52] VITALS: BP 98/61
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
[2017-07-12 20:00] VITALS: BP 123/86
--- NOTE | 2017-07-12 20:10 | General Progress Note ---
Assessment/Plan Problem List: (1) Lipoma of back ICD Codes: D17.1 - Benign lipomatous neoplasm of skin and subcutaneous tissue of trunk SNOMED: 354533797 (2) Abscess ICD Codes: L02.91 - Cutaneous abscess, unspecified SNOMED: 245319857 (3) Paraplegia ICD Codes: G82.20 - Paraplegia, unspecified SNOMED: 08546812 (4) Tremor ICD Codes: R25.1 - Tremor, unspecified SNOMED: 27226369 (5) Encephalopathy ICD Codes: G93.40 - Encephalopathy, unspecified SNOMED: 07970051 Status: progressing Assessment/Plan paraplegia abscess antibiotic per id afebrile encepalopathy Subjective ROS Limited/Unobtainable: Yes Constitutional: Reports: no symptoms Allergies: Coded Allergies: PENICILLINS (Verified Allergy, Unknown, 06/11/17) Objective Last 24 Hour Vital Signs Date Time Temp Pulse Resp B/P (MAP) Pulse Ox O2 Delivery O2 Flow Rate FiO2 07/12/17 20:00 98.4 79 20 123/86 99 07/12/17 11:52 98.1 84 20 98/61 99 Room Air 07/12/17 10:13 98.9 07/12/17 09:43 98.9 07/12/17 09:42 76 114/71 07/12/17 08:15 98.9 76 20 114/71 98 Room Air 07/12/17 04:00 98.3 72 20 133/90 98 Room Air Intake and Output 07/11/17 07/12/17 19:00 07:00 Intake Total 1400 ml 1166.667 ml Balance 1400 ml 1166.667 ml Intake Oral 1400 ml 750 ml IV Total 416.667 ml # Voids 7 4 # Bowel Movements 1 Laboratory Tests 07/12/17 05:30: White Blood Count 12.0H, Red Blood Count 4.56L, Hemoglobin 12.8L, Hematocrit 38.5L, Mean Corpuscular Volume 84, Mean Corpuscular Hemoglobin 28.1, Mean Corpuscular Hemoglobin Concent 33.3, Red Cell Distribution Width 13.7, Platelet Count 423, Mean Platelet Volume 6.2L, Neutrophils (%) (Auto) 67.3, Lymphocytes ( %) (Auto) 22.5, Monocytes (%) (Auto) 9.3, Eosinophils (%) (Auto) 0.2, Basophils (%) (Auto) 0.8, Sodium Level 136, Potassium Level 3.2L, Chloride Level 99, Carbon Dioxide Level 30, Anion Gap 7, Blood Urea Nitrogen 6L, Creatinine 0.7, Estimat Glomerular Filtration Rate > 60, Glucose Level 119H, Calcium Level 9.0 Height (Feet): 5 Height (Inches): 4.00 Weight (Pounds): 115 Cardiovascular: normal rate Respiratory/Chest: lungs clear Abdomen: soft Maxi Malin MD Jul 12, 2017 20:10
[2017-07-13] VITALS: BP 109/68
[2017-07-13] MEDS: Zolpidem 5mg tab ORAL PRN ×2 (00:15→23:10)
[2017-07-13] MEDS: LORazepam Inj 2mg/ml 1ml IV PRN ×3 (00:34→21:19)
[2017-07-13] MEDS: Morphine Sulfate 4mg/ml Inj IVP PRN ×5 (01:07→22:37)
[2017-07-13 04:00] VITALS: BP 107/67
[2017-07-13] MEDS: Vancomycin 750mg/NS 250ml IVPB SCH ×3 (05:14→21:50)
[2017-07-13 05:56] LABS: BASOPHILS % (AUTO) 0.9 % (0.0-2.0); EOSINOPHILS % (AUTO) 1.1 % (0.0-3.0); HEMOGLOBIN 11.8 G/DL (14.2-18.0); MEAN CORPUSCULAR VOLUME 86 FL (80-99); MONOCYTES % (AUTO) 8.5 % (1.0-10.0); NEUTROPHILS % (AUTO) 53.4 % (45.0-75.0); PLATELET COUNT 362 K/UL (150-450); RED CELL DISTRIBUTION WIDTH 14.1 % (11.6-14.8); WHITE BLOOD COUNT 7.7 K/UL (4.8-10.8)
[2017-07-13 06:19] LABS: ANION GAP 6 mmol/L (5-15); BLOOD UREA NITROGEN 9 mg/dL (7-18); CARBON DIOXIDE 28 MMOL/L (21-32); CHLORIDE 102 MMOL/L (98-107); CREATININE 0.6 MG/DL (0.55-1.30); POTASSIUM 4.3 MMOL/L (3.5-5.1); SODIUM 136 MMOL/L (136-145)
[2017-07-13 08:00] VITALS: BP 111/74
[2017-07-13] MEDS: Atenolol 25mg tab ORAL SCH (08:31)
[2017-07-13] MEDS: Benztropine 1mg tab ORAL SCH ×2 (08:31→17:06)
[2017-07-13] MEDS ORDERED: Tubing IV Secondary IV ONE (10:08)
[2017-07-13] MEDS ORDERED: NS 275ml ONE (10:08)
--- NOTE | 2017-07-13 10:11 | General Progress Note ---
Assessment/Plan Problem List: (1) Lipoma of back ICD Codes: D17.1 - Benign lipomatous neoplasm of skin and subcutaneous tissue of trunk SNOMED: 501466103 (2) Abscess ICD Codes: L02.91 - Cutaneous abscess, unspecified SNOMED: 803679149 (3) Paraplegia ICD Codes: G82.20 - Paraplegia, unspecified SNOMED: 89025621 (4) Tremor ICD Codes: R25.1 - Tremor, unspecified SNOMED: 17355872 (5) Encephalopathy ICD Codes: G93.40 - Encephalopathy, unspecified SNOMED: 87030404 Status: progressing Assessment/Plan paraplegia lipoma afebrile abx per id no change abscess treatment per id recommendation Subjective ROS Limited/Unobtainable: Yes Allergies: Coded Allergies: PENICILLINS (Verified Allergy, Unknown, 06/11/17) Objective Last 24 Hour Vital Signs Date Time Temp Pulse Resp B/P (MAP) Pulse Ox O2 Delivery O2 Flow Rate FiO2 07/13/17 09:01 98.5 07/13/17 08:31 98.5 07/13/17 08:31 78 111/74 07/13/17 08:00 98.5 78 18 111/74 99 07/13/17 04:00 98.1 70 20 107/67 96 07/13/17 04:00 Room Air 07/13/17 00:00 Room Air 07/13/17 00:00 98.3 63 20 109/68 99 07/12/17 20:00 98.4 79 20 123/86 99 07/12/17 20:00 Room Air 07/12/17 11:52 98.1 84 20 98/61 99 Room Air Intake and Output 07/12/17 07/13/17 19:00 07:00 Intake Total 1000.000 ml 416.667 ml Balance 1000.000 ml 416.667 ml Intake Oral 750 ml IV Total 250.000 ml 416.667 ml # Voids 2 3 Laboratory Tests 07/13/17 04:15: White Blood Count 7.7, Red Blood Count 4.20L, Hemoglobin 11.8L, Hematocrit 36.0L , Mean Corpuscular Volume 86, Mean Corpuscular Hemoglobin 28.1, Mean Corpuscular Hemoglobin Concent 32.8, Red Cell Distribution Width 14.1, Platelet Count 362, Mean Platelet Volume 6.3L, Neutrophils (%) (Auto) 53.4, Lymphocytes ( %) (Auto) 36.0, Monocytes (%) (Auto) 8.5, Eosinophils (%) (Auto) 1.1, Basophils (%) (Auto) 0.9, Sodium Level 136, Potassium Level 4.3, Chloride Level 102, Carbon Dioxide Level 28, Anion Gap 6, Blood Urea Nitrogen 9, Creatinine 0.6, Estimat Glomerular Filtration Rate > 60, Glucose Level 90, Calcium Level 9.0 Height (Feet): 5 Height (Inches): 4.00 Weight (Pounds): 115 General Appearance: confused Cardiovascular: normal rate Respiratory/Chest: lungs clear Maxi Malin MD Jul 13, 2017 10:11
--- NOTE | 2017-07-13 10:47 | Infectious Diseases Prog Note ---
Assessment/Plan Assessment/Plan A Back cellulitis, abscess mass in back, likely dislocated hardware Paraplegia Fecal impaction T12 compression Urinary incontinence P; Continue IV Vancomycin will f/u cultures Subjective ROS Limited/Unobtainable: Yes Allergies: Coded Allergies: PENICILLINS (Verified Allergy, Unknown, 06/11/17) Objective Vital Signs Last 24 Hour Vital Signs Date Time Temp Pulse Resp B/P (MAP) Pulse Ox O2 Delivery O2 Flow Rate FiO2 07/13/17 09:01 98.5 07/13/17 08:31 98.5 07/13/17 08:31 78 111/74 07/13/17 08:00 98.5 78 18 111/74 99 07/13/17 04:00 98.1 70 20 107/67 96 07/13/17 04:00 Room Air 07/13/17 00:00 Room Air 07/13/17 00:00 98.3 63 20 109/68 99 07/12/17 20:00 98.4 79 20 123/86 99 07/12/17 20:00 Room Air 07/12/17 11:52 98.1 84 20 98/61 99 Room Air Height (Feet): 5 Height (Inches): 4.00 Weight (Pounds): 115 General Appearance: no acute distress HEENT: mucous membranes moist Respiratory/Chest: lungs clear Cardiovascular: normal rate Abdomen: soft, non tender Extremities: no edema Skin: ulcers, other - back Neurologic/Psychiatric: other - sleeping Microbiology Date/Time Source Procedure Growth Status 07/10/17 17:00 Back Gram Stain Pending Resulted 07/10/17 17:00 Back Wound Culture - Preliminary NO GROWTH AFTER 72 HOURS Resulted Laboratory Tests Test 07/13/17 04:15 White Blood Count 7.7 K/UL (4.8-10.8) Red Blood Count 4.20 M/UL (4.70-6.10) L Hemoglobin 11.8 G/DL (14.2-18.0) L Hematocrit 36.0 % (42.0-52.0) L Mean Corpuscular Volume 86 FL (80-99) Mean Corpuscular Hemoglobin 28.1 PG (27.0-31.0) Mean Corpuscular Hemoglobin Concent 32.8 G/DL (32.0-36.0) Red Cell Distribution Width 14.1 % (11.6-14.8) Platelet Count 362 K/UL (150-450) Mean Platelet Volume 6.3 FL (6.5-10.1) L Neutrophils (%) (Auto) 53.4 % (45.0-75.0) Lymphocytes (%) (Auto) 36.0 % (20.0-45.0) Monocytes (%) (Auto) 8.5 % (1.0-10.0) Eosinophils (%) (Auto) 1.1 % (0.0-3.0) Basophils (%) (Auto) 0.9 % (0.0-2.0) Sodium Level 136 MMOL/L (136-145) Potassium Level 4.3 MMOL/L (3.5-5.1) Chloride Level 102 MMOL/L (98-107) Carbon Dioxide Level 28 MMOL/L (21-32) Anion Gap 6 mmol/L (5-15) Blood Urea Nitrogen 9 mg/dL (7-18) Creatinine 0.6 MG/DL (0.55-1.30) Estimat Glomerular Filtration Rate > 60 mL/min (>60) Glucose Level 90 MG/DL (74-106) Calcium Level 9.0 MG/DL (8.5-10.1) Current Medications Medications (Trade) Dose Ordered Sig/Jo Route PRN Reason Start Time Stop Time Status Last Admin Dose Admin Acetaminophen (Tylenol) 650 mg Q4H PRN ORAL fever 07/09/17 19:00 08/08/17 18:59 07/11/17 22:15 Al Hydroxide/Mg Hydroxide (Mylanta II) 30 ml Q6H PRN ORAL dyspepsia 07/09/17 19:00 08/08/17 18:59 07/11/17 23:41 Atenolol (Tenormin) 25 mg DAILY ORAL 07/10/17 09:00 08/09/17 08:59 07/13/17 08:31 Benztropine Mesylate (Cogentin) 1 mg BID ORAL 07/10/17 09:00 08/09/17 08:59 18 08:31 Dextrose (Dextrose 50%) STAT PRN IV Hypoglycemia 07/09/17 19:00 18 18:59 Lorazepam (Ativan 2mg/ml 1ml) 0.5 mg Q4H PRN IV For Anxiety 07/09/17 19:00 07/16/17 18:59 07/13/17 00:34 Morphine Sulfate (Morphine Sulfate) 1 mg EVERY 4 HOURS PRN IVP For Pain 07/09/17 19:00 07/16/17 18:59 07/13/17 08:31 Ondansetron HCl (Zofran) 4 mg Q6H PRN IVP Nausea & Vomiting 07/09/17 19:00 08/08/17 18:59 07/11/17 20:02 Polyethylene Glycol (Miralax) 17 gm HSPRN PRN ORAL Constipation 07/09/17 19:00 08/08/17 18:59 Vancomycin HCl (Vanco rx to dose) 1 ea DAILY PRN MISC Per rx protocol 07/10/17 13:15 08/09/17 13:14 Vancomycin/Sodium Chloride 250 ml @ 166.667 mls/hr Q8HR IVPB 07/10/17 14:30 07/15/17 14:29 07/13/17 05:14 Zolpidem Tartrate (Ambien) 5 mg HSPRN PRN ORAL Insomnia 07/09/17 19:00 07/16/17 18:59 07/13/17 00:15 OMAR RIVERA Jul 13, 2017 10:47
[2017-07-13 12:00] VITALS: BP 108/69
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
--- NOTE | 2017-07-13 13:04 | General Surgery Progress Note ---
General Surgery-Progress Note Subjective Additional Comments doing well. no acute events. Objective Last 24 Hour Vital Signs Date Time Temp Pulse Resp B/P (MAP) Pulse Ox O2 Delivery O2 Flow Rate FiO2 07/13/17 12:00 98.4 58 18 108/69 99 07/13/17 09:01 98.5 07/13/17 08:31 98.5 07/13/17 08:31 78 111/74 07/13/17 08:00 98.5 78 18 111/74 99 07/13/17 04:00 98.1 70 20 107/67 96 07/13/17 04:00 Room Air 07/13/17 00:00 Room Air 07/13/17 00:00 98.3 63 20 109/68 99 07/12/17 20:00 98.4 79 20 123/86 99 07/12/17 20:00 Room Air I&O Intake and Output 07/12/17 07/13/17 19:00 07:00 Intake Total 1000.000 ml 416.667 ml Balance 1000.000 ml 416.667 ml Intake Oral 750 ml IV Total 250.000 ml 416.667 ml # Voids 2 3 Dressing: saturated Cardiovascular: RSR Respiratory: clear Abdomen: soft, flat, non-tender, present bowel sounds Extremities: no cyanosis Laboratory Tests Test 07/13/17 04:15 White Blood Count 7.7 K/UL (4.8-10.8) Red Blood Count 4.20 M/UL (4.70-6.10) L Hemoglobin 11.8 G/DL (14.2-18.0) L Hematocrit 36.0 % (42.0-52.0) L Mean Corpuscular Volume 86 FL (80-99) Mean Corpuscular Hemoglobin 28.1 PG (27.0-31.0) Mean Corpuscular Hemoglobin Concent 32.8 G/DL (32.0-36.0) Red Cell Distribution Width 14.1 % (11.6-14.8) Platelet Count 362 K/UL (150-450) Mean Platelet Volume 6.3 FL (6.5-10.1) L Neutrophils (%) (Auto) 53.4 % (45.0-75.0) Lymphocytes (%) (Auto) 36.0 % (20.0-45.0) Monocytes (%) (Auto) 8.5 % (1.0-10.0) Eosinophils (%) (Auto) 1.1 % (0.0-3.0) Basophils (%) (Auto) 0.9 % (0.0-2.0) Sodium Level 136 MMOL/L (136-145) Potassium Level 4.3 MMOL/L (3.5-5.1) Chloride Level 102 MMOL/L (98-107) Carbon Dioxide Level 28 MMOL/L (21-32) Anion Gap 6 mmol/L (5-15) Blood Urea Nitrogen 9 mg/dL (7-18) Creatinine 0.6 MG/DL (0.55-1.30) Estimat Glomerular Filtration Rate > 60 mL/min (>60) Glucose Level 90 MG/DL (74-106) Calcium Level 9.0 MG/DL (8.5-10.1) Plan Problems: (1) Abscess Assessment & Plan: abscess on back that is spontaneously draining. seems chronic and likely related to hard non mobile mass just adjacent to it. very concerning given etiology unknown of this hard non mobile mass. unlikely to be lipoma. needs further work up. CT scan reviewed. no infected lipoma or mass. lots of protruding hardware noted which was correlated on exam today. likely hardware infected or non healing given open wound. Needs to be evaluated by spine surgeon as concerns for hardware infection. Given stable and chronic can be done as an outpatient continue packing and dressings for now. patient stable, afebrile, labs okay. no acute active process noted but concerning wound. will follow with recs as studies available. Raoul Ball Jul 13, 2017 13:04
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
[2017-07-13 15:49] VITALS: BP 147/96
[2017-07-13 20:00] VITALS: BP 150/91
[2017-07-13] MEDS: Mylanta II UD 30ml ORAL PRN (21:19)
[2017-07-14] VITALS: BP 166/92
[2017-07-14 04:00] VITALS: BP 107/73
[2017-07-14] MEDS: Vancomycin 750mg/NS 250ml IVPB SCH (05:41)
[2017-07-14 08:00] VITALS: BP 127/78
[2017-07-14 09:00] VITALS: BP 127/78
[2017-07-14] MEDS: Atenolol 25mg tab ORAL SCH (09:00)
[2017-07-14] MEDS: Benztropine 1mg tab ORAL SCH (09:00)
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
--- NOTE | 2017-07-14 11:19 | Infectious Diseases Prog Note ---
Assessment/Plan Assessment/Plan A Back cellulitis, abscess mass in back, likely dislocated hardware Paraplegia Fecal impaction T12 compression Urinary incontinence P; discontinue IV Vancomycin, PO Doxycycline X 7 days agree with discharge Subjective ROS Limited/Unobtainable: Yes Allergies: Coded Allergies: PENICILLINS (Verified Allergy, Unknown, 06/11/17) Objective Vital Signs Last 24 Hour Vital Signs Date Time Temp Pulse Resp B/P (MAP) Pulse Ox O2 Delivery O2 Flow Rate FiO2 07/14/17 09:00 73 127/78 07/14/17 08:00 98.2 73 20 127/78 100 07/14/17 04:00 97.7 71 19 107/73 97 07/14/17 00:00 97.7 65 21 166/92 98 07/13/17 20:00 99.0 62 21 150/91 97 07/13/17 19:02 97.9 07/13/17 18:32 97.9 07/13/17 15:49 97.9 74 23 147/96 97 Room Air 07/13/17 14:48 98.4 07/13/17 12:00 98.4 58 18 108/69 99 Height (Feet): 5 Height (Inches): 4.00 Weight (Pounds): 115 General Appearance: no acute distress HEENT: mucous membranes moist Respiratory/Chest: lungs clear Cardiovascular: normal rate Abdomen: soft, non tender Extremities: no edema Skin: ulcers, other - ulcerated bulge in back Current Medications Medications (Trade) Dose Ordered Sig/Jo Route PRN Reason Start Time Stop Time Status Last Admin Dose Admin Acetaminophen (Tylenol) 650 mg Q4H PRN ORAL Fever/Headache/Mild Pain 07/13/17 19:00 08/12/17 18:59 07/14/17 00:30 Al Hydroxide/Mg Hydroxide (Mylanta II) 30 ml Q6H PRN ORAL dyspepsia 07/09/17 19:00 08/08/17 18:59 07/13/17 21:19 Atenolol (Tenormin) 25 mg DAILY ORAL 07/10/17 09:00 08/09/17 08:59 07/13/17 08:31 Benztropine Mesylate (Cogentin) 1 mg BID ORAL 07/10/17 09:00 08/09/17 08:59 07/13/17 17:06 Dextrose (Dextrose 50%) STAT PRN IV Hypoglycemia 07/09/17 19:00 08/08/17 18:59 Diphenhydramine HCl (Benadryl) 25 mg Q4H PRN ORAL Itching/Pruritis 07/13/17 17:00 08/12/17 16:59 Lorazepam (Ativan 2mg/ml 1ml) 0.5 mg Q4H PRN IV For Anxiety 07/09/17 19:00 07/16/17 18:59 07/13/17 21:19 Morphine Sulfate (Morphine Sulfate) 1 mg EVERY 4 HOURS PRN IVP For Pain 07/09/17 19:00 07/16/17 18:59 07/13/17 22:37 Ondansetron HCl (Zofran) 4 mg Q6H PRN IVP Nausea & Vomiting 07/09/17 19:00 08/08/17 18:59 07/13/17 18:00 Polyethylene Glycol (Miralax) 17 gm HSPRN PRN ORAL Constipation 07/09/17 19:00 08/08/17 18:59 Vancomycin HCl (Vanco rx to dose) 1 ea DAILY PRN MISC Per rx protocol 07/10/17 13:15 08/09/17 13:14 Vancomycin/Sodium Chloride 250 ml @ 166.667 mls/hr Q8HR IVPB 07/10/17 14:30 07/15/17 14:29 07/14/17 05:41 Zolpidem Tartrate (Ambien) 5 mg HSPRN PRN ORAL Insomnia 07/09/17 19:00 07/16/17 18:59 07/13/17 23:10 OMAR RIVERA Jul 14, 2017 11:19
[2017-07-14] MEDS ORDERED: VIBRAMYCIN50 MG/5 M1 PO (11:36)
--- NOTE | 2017-07-16 21:57 | Diagnostic Imaging Report ---
APPROVED REPORT CPT Code: 69873 Present Symptoms Comments: R/O DVT BILATERAL: Imaging reveals a patent deep venous system bilaterally. There is no evidence of thrombus within the femoral, popliteal or tibial segments. The greater saphenous veins are also within normal limits. Doppler indicates normal spontaneous flow within these segments.
[2017-07-17] MEDS ORDERED: DOXYCYCLINE HY100 M2 PO (13:02)
--- NOTE | 2017-07-17 13:02 | Discharge Summary ---
Discharge Summary Hospital Course Date of Admission Jul 09, 2017 at 18:13 Date of Discharge Jul 14, 2017 at 12:35 Admitting Diagnosis abscess HPI Sergio Ray is a 41 year old male who was admitted on Jul 09, 2017 at 18: 13 for Abscess Hospital Course dc summary #[id number] Discharge Medications New Medications: Doxycycline Hyclate (Doxycycline Hyclate) 100 Mg Capsule 100 MG PO BID, #14 CAP Continued Medications: Ascorbic Acid* (Ascorbic Acid*) 500 Mg Tablet 500 MG ORAL DAILY, TAB Atenolol* (Tenormin*) 25 Mg Tablet 25 MG ORAL DAILY, TAB Benztropine Mesylate* (Benztropine Mesylate*) 1 Mg Tablet 1 MG PO BID, TAB Cyclobenzaprine Hcl* (Flexeril*) 10 Mg Tablet 10 MG ORAL THREE TIMES A DAY, TAB Docusate Sodium* (Docusate Sodium*) 250 Mg Capsule 250 MG ORAL DAILY, CAP Doxycycline Calcium (Vibramycin) 50 Mg/5 Ml Syrup 100 MG PO Q12HR for 7 Days, ML Ferrous Sulfate* (Ferrous Sulfate*) 325 Mg Tablet 325 MG ORAL DAILY, TAB Multivitamin (Multi Vitamin Daily) 1 Each Tablet 1 TAB ORAL DAILY, TAB Tramadol Hcl* (Ultram*) 50 Mg Tablet 50 MG ORAL Q12HR PRN for For Pain, TAB Discontinued Medications: Docusate Sodium* (Colace*) 100 Mg Capsule 100 MG ORAL BID PRN for cons, CAP Discharge Condition Upon Discharge: stable Discharge Disposition Patient was discharged to [facility] Acute Discharge Diagnoses: Eduin (Good)Milli NP Jul 17, 2017 13:02
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
== END 2017-07-14 12:35 | DRG 602 ==
LOC: EDSEX 16:26 → EDBD 16:26 → EMR 18:09 → 4E 18:13 → EDBEDREQ 18:27 → 4E 07-10 21:14
DX: L02.212 Cutaneous abscess of back [any part, except buttock and flank] (principal); E43 Unspecified severe protein-calorie malnutrition; G93.40 Encephalopathy, unspecified; G82.20 Paraplegia, unspecified; E88.09 Other disorders of plasma-protein metabolism, not elsewhere classified; S24.154S Other incomplete lesion at T11-T12 level of thoracic spinal cord, sequela; Z68.1 Body mass index [BMI] 19.9 or less, adult; F20.0 Paranoid schizophrenia; K56.41 Fecal impaction; V49.9XXS Car occupant (driver) (passenger) injured in unspecified traffic accident, sequela; I10 Essential (primary) hypertension; K21.9 Gastro-esophageal reflux disease without esophagitis; J44.9 Chronic obstructive pulmonary disease, unspecified; R32 Unspecified urinary incontinence; D64.9 Anemia, unspecified; R25.1 Tremor, unspecified; Z86.14 Personal history of Methicillin resistant Staphylococcus aureus infection; Z88.0 Allergy status to penicillin; Z87.891 Personal history of nicotine dependence; T84.63XD Infection and inflammatory reaction due to internal fixation device of spine, subsequent encounter; Y83.8 Other surgical procedures as the cause of abnormal reaction of the patient, or of later complication, without mention of misadventure at the time of the procedure; T84.226D Displacement of internal fixation device of vertebrae, subsequent encounter
CPT/HCPCS: 36415; 71045; 74176; 80048; 80053; 80061; 80202; 81003; 82306; 82607; 82746; 83036; 83605; 84443; 85025; 85651; 86592; 87040; 87070; 87081; 87205; 93005; 93970; 97803; 99285; J2405; J8499